=== PATIENT | female | born 1945 | race Caucasian/White ===

== ENCOUNTER → 2016-04-26 | Outpatient (CLI) | payer OTHER ==
[~2016-04-26] MED LIST: ADVIN10/60 INH; ALPR0.25 PO; BONINE; BUDESUS; CMBIN INH; FEXO180T PO; LANS30CA41 PO; LEVO150T PO; LSX20 PO; POTA-327 PO; SERTRALINE PO; SIMV20TA2 PO; [UNRECOGNIZED DRUG - CODE] PO
== END | disposition home or self-care (01) ==
LOC: C.PATH 13:58
PROVIDERS: ATTEND Dermatology
DX: L57.0 Actinic keratosis (principal); C44.329 Squamous cell carcinoma of skin of other parts of face; C44.622 Squamous cell carcinoma of skin of right upper limb, including shoulder

== ENCOUNTER → 2016-09-20 | Outpatient (CLI) | payer OTHER | END | disposition home or self-care (01) | LOC: C.PATHSPEC 17:11 | PROVIDERS: ATTEND Dermatology | DX: C44.629 Squamous cell carcinoma of skin of left upper limb, including shoulder (principal); L57.0 Actinic keratosis ==

== ENCOUNTER → 2016-12-27 | Outpatient (CLI) | payer OTHER | END | disposition home or self-care (01) | LOC: C.PATHSPEC 13:15 | PROVIDERS: ATTEND Dermatology | DX: L57.0 Actinic keratosis (principal); L57.8 Other skin changes due to chronic exposure to nonionizing radiation ==

== ENCOUNTER → 2017-09-24 | Outpatient (CLI) | payer OTHER ==
--- NOTE | 2017-09-24 13:21 | DIAGNOSTIC IMAGING REPORT ---
LUMBAR SPINE MRI HISTORY: Low BACK PAIN TECHNIQUE: Multiplanar multisequence MRI of the lumbar spine was performed without the use of contrast. COMPARISON: None. FINDINGS: For the purpose of the report the L5-S1 disc space will be located on axial image 27 of 30. There is 2 mm of anterolisthesis of L4 and L5. No fractures within the lumbar spine. The conus terminus at the L1 level. Paraspinal soft tissues are unremarkable. Moderate to severe facet degenerative changes throughout the lumbar spine. This is most pronounced at the L4-5 level. There is a hypoplastic disc space at S1-S2. Colonic diverticulosis. A few small hypointense lesions within the uterus with the largest measuring 1.3 cm. These likely represent fibroids. There is a left retroaortic renal vein. Mild disc space narrowing at L1L2, L3-L4, and L5-S1. There is diffuse disc desiccation. Small amount of fluid within the L4-5 facets likely due to long-standing degenerative change. L1-L2: Broad-based posterior disc bulge asymmetric to the right without significant central canal narrowing. There is moderate to severe right-sided neural foraminal narrowing due to the disc bulge and facet hypertrophy. L2-L3: Small broad-based posterior disc bulge with a right extraforaminal annular tear. No significant central canal narrowing. Mild left-sided neural foraminal narrowing. L3-L4: Broad-based posterior disc bulge with ligamentum and facet hypertrophy. This results in moderate central canal and severe left-sided neural foraminal narrowing. There is mild right-sided neural foraminal narrowing. L4-L5: Broad-based posterior disc bulge with ligamentum and facet hypertrophy resulting in moderate central canal narrowing. There is mild right and moderate to severe left neural foraminal narrowing. L5-S1: No significant central canal or neural foraminal narrowing. IMPRESSION: 1. Multilevel lumbar spondylosis as described above most pronounced at the L3-L4 and L4-5 levels. 2. Grade I anterolisthesis of L4 on L5. This is likely due to long-standing degenerative change. 3. No fractures identified within the lumbar spine. Electronically signed by: Emery Altamirano M.D. 09/24/2017 1:20 PM Dictated Date/Time: 09/24/2017 1:09 PM
== END | disposition home or self-care (01) ==
LOC: C.MRIBC 12:18
PROVIDERS: ATTEND Pain Medicine Interventional Pain Medicine
DX: M54.5 Low back pain (principal)